=== PATIENT | female | born 1965 | race African-American/Black ===

== ENCOUNTER 2022-12-13 10:40 | Emergency (ER) | payer MEDICARE, OTHER, SELFPAY ==
[2022-12-13 12:07] LABS: SARS-CoV-2 NAA Rapid Test Not Detected (NotDetected)
== END 2022-12-13 12:16 | disposition home or self-care (01) ==
LOC: CSHERS 10:40
DX: J06.9 Acute upper respiratory infection, unspecified (principal); J18.9 Pneumonia, unspecified organism; I11.0 Hypertensive heart disease with heart failure; I50.9 Heart failure, unspecified; E11.9 Type 2 diabetes mellitus without complications; Z87.891 Personal history of nicotine dependence; Z20.822 Contact with and (suspected) exposure to COVID-19
CPT/HCPCS: 71046